=== PATIENT | female | born 1965 | race Caucasian/White ===

== ENCOUNTER 2021-04-12 09:33 | Outpatient (CLI) | payer BC, SELFPAY ==
[2021-04-12 10:43] LABS: SARS-CoV-2 RNA PCR Negative (Negative)
== END 2021-04-12 09:34 | disposition home or self-care (01) ==
PROVIDERS: Visit Provider Pediatrics
DX: Z20.822 Contact with and (suspected) exposure to COVID-19 (principal)
CPT/HCPCS: C9803; U0003; U0005

== ENCOUNTER 2021-08-15 16:28 | Outpatient (CLI) | payer BC, SELFPAY ==
[2021-08-15 17:45] LABS: Influenza A QL RT-PCR Negative (Negative); Influenza B QL RT-PCR Negative (Negative); SARS-CoV-2 RNA PCR Negative (Negative)
== END 2021-08-15 16:29 | disposition home or self-care (01) ==
LOC: CHSLAB 16:30
PROVIDERS: PCP Pediatrics; Visit Provider Pediatrics
DX: R05.9 Cough, unspecified (principal); M79.10 Myalgia, unspecified site; Z20.822 Contact with and (suspected) exposure to COVID-19
CPT/HCPCS: 87502; C9803; U0003; U0005

== ENCOUNTER 2021-09-26 12:12 | Outpatient (CLI) | payer BC, SELFPAY ==
[2021-09-26 12:55] LABS: SARS-CoV-2 Ag Negative (Negative)
[2021-09-26 16:33] LABS: SARS-CoV-2 RNA PCR Negative (Negative)
== END 2021-09-26 12:13 | disposition home or self-care (01) ==
LOC: CHSLAB 12:15
PROVIDERS: Visit Provider Pediatrics
DX: Z20.822 Contact with and (suspected) exposure to COVID-19 (principal); R51.9 Headache, unspecified
CPT/HCPCS: 87426; C9803; U0003; U0005